=== PATIENT | male | born 1975 | race Caucasian/White ===

== ENCOUNTER 2017-10-31 11:19 | Outpatient (CLI) ==
--- NOTE | 2017-10-31 11:50 | DI ---
EXAM: RIGHT RIBS HISTORY: Right-sided rib pain FINDINGS: Right ribs four view. No displaced rib fracture is identified. No bony destruction, pneum othorax or soft tissue finding. IMPRESSION: No displaced rib fracture seen.
== END 2017-10-31 11:20 | disposition home or self-care (01) ==
LOC: RAD 11:19
PROVIDERS: ATTEND Family Medicine
DX: R10.9 Unspecified abdominal pain (principal); C18.9 Malignant neoplasm of colon, unspecified

== ENCOUNTER 2018-04-02 15:24 | Outpatient (CLI) | END 2018-04-02 15:25 | disposition home or self-care (01) | LOC: FCC-LAB 15:24 | PROVIDERS: ATTEND Family Medicine | DX: Z51.81 Encounter for therapeutic drug level monitoring (principal); E11.9 Type 2 diabetes mellitus without complications; Z79.899 Other long term (current) drug therapy | CPT/HCPCS: 80306; 82043 ==